=== PATIENT | male | born 1990 | race Caucasian/White ===

== ENCOUNTER 2021-04-13 00:25 | Emergency (ER) | payer SELFPAY ==
[2021-04-13 00:34] VITALS: BP 153/93; PULSE 80; RESP 18; TEMP 36.8; O2SAT 97; BMI 27.7
--- NOTE | 2021-04-13 00:41 | CTR_ITS ---
PROCEDURE INFORMATION: Exam: CT Cervical Spine Without Contrast Exam date and time: 04/13/2021 12:41 AM Age: 31 years old Clinical indication: Injury or trauma; Fall; Blunt trauma TECHNIQUE: Imaging protocol: Computed tomography images of the cervical spine without contrast. Radiation optimization: All CT scans at this facility use at least one of these dose optimization techniques: automated exposure control; mA and/or kV adjustment per patient size (includes targeted exams where dose is matched to clinical indication); or iterative reconstruction. COMPARISON: No relevant prior studies available. RADIATION DOSE METRICS: Total DLP (mGy-cm): 686.73 FINDINGS: Bones/joints: Spinal alignment is normal. Vertebral body height is maintained. There is a subtle nondisplaced fracture through the posterior margin of the left foramen transversarium visible on axial series 4, image 35 and coronal series 602, image 39. Discs/Spinal canal/Neural foramina: There is no spinal canal stenosis. Lungs: Lung apices are clear. Soft tissues: Soft tissues in the neck and thoracic inlet are unremarkable. CT/CT cervical spin wo con* [id number] IMPRESSION: Nondisplaced fracture through the left foramen transversarium at C2. This finding increases the likelihood of vertebral arterial injury. Recommend follow-up CTA of the neck. Radiation Dose CTDIVOL = (mGy): DLP = 686.73 (mGy-cm)
--- NOTE | 2021-04-13 00:41 | ECG_ITS ---
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 Measurements Intervals [place] Rate: 84 P: 59 OR: 152 QRS: 67 QRSD: 121 T: 40 QT: 357 QTc: 422 Interpretive Statements SINUS RHYTHM POSSIBLE RIGHT VENTRICULAR CONDUCTION DELAY [RSR (QR) IN V1/V2] No previous ECG available for comparison Electronically Signed On 04-13-2021 21:08:55 CDT by Nery Torres M.D. [email or web address]
--- NOTE | 2021-04-13 00:41 | CTR_ITS ---
PROCEDURE INFORMATION: Exam: CT Head Without Contrast Exam date and time: 04/13/2021 12:41 AM Age: 31 years old Clinical indication: Injury or trauma; Fall; Blunt trauma (contusions or hematomas); With loss of consciousness; Loss of consciousness 31-59 minutes; Injury details: Abrasions on forehead; Additional info: Head injury TECHNIQUE: Imaging protocol: Computed tomography of the head without contrast. Radiation optimization: All CT scans at this facility use at least one of these dose optimization techniques: automated exposure control; mA and/or kV adjustment per patient size (includes targeted exams where dose is matched to clinical indication); or iterative reconstruction. COMPARISON: No relevant prior studies available. RADIATION DOSE METRICS: Total DLP (mGy-cm): 890.73 FINDINGS: Brain: The brain is unremarkable. There is no mass effect or significant white matter disease. There is no acute intracranial hemorrhage. Cerebral ventricles: There is no significant ventricular dilation. The basal cisterns are unremarkable. Paranasal sinuses: There is mucosal thickening in the ethmoid sinuses. There is no fluid in the paranasal sinuses to suggest acute sinusitis. Mastoid air cells: The mastoid air cells are clear. Bones/joints: The calvarium is intact. Soft tissues: The visible extracranial soft tissues are unremarkable. CT/CT head wo con* [id number] IMPRESSION: No acute findings. Radiation Dose CTDIVOL = (mGy): DLP = 890.73 (mGy-cm)
--- NOTE | 2021-04-13 00:45 | ED_ITS ---
HPI - Syncope General: Chief Complaint: Syncope Stated Complaint: SYNCOPE/ANXIETY Time Seen by Provider: 04/13/21 00:34 Source: patient Mode of arrival: ambulatory Limitations: no limitations History of Present Illness: HPI narrative: 31-year-old male states that he was at alcoholics anonymous meeting [facility] and states he was walking started feeling very anxious. States been having anxiety attacks as has been trying to stop drinking. He states that he had woke up on the ground and did not remember what it happened. He did have a syncopal event and he hit his head on the ground. States he is got some head and neck pain. Denies any chest pain. States he still feeling anxious. Associated symptoms: Deny abdominal pain, chest pain, fever(s), headache(s) or nausea Review of Systems Const: Denies: fever(s), chills, body aches or change in appetite Eyes: Denies: blurry vision or eye discomfort ENMT: Denies: throat pain or dental pain Card: Reports: syncope; Denies: chest pain Resp: Denies: dyspnea GI: Denies: abdominal pain, nausea, vomiting or diarrhea : Denies: dysuria Musc: Denies: neck pain or back pain Skin/Breast: Denies: rash Neuro: Denies: headache(s) Psych: Reports: anxiety; Denies: depression Dao/Lymph: Denies: easy bruising All/Imm: Denies: urticaria Physical Exam Const: COMMON NORMALS: no acute distress, patient oriented x3 and healthy appearing HENMT: COMMON NORMALS: normocephalic HEAD & SCALP: normocephalic OTHER: abrasions to forehead Eye: COMMON NORMALS: Equal, round and reactive pupils present and EOMs intact bilaterally PUPIL: Yes Equal, round and reactive pupils present Neck/C-Spine: COMMON NORMALS: full ROM and supple Chest: COMMONS NORMALS: normal inspection of the chest and normal palpation of entire chest wall Resp: COMMON NORMALS: normal respiratory effort, No retractions, No use of accessory muscles and clear to auscultation bilaterally AUSCULTATION: clear to auscultation bilaterally Cardio: COMMON NORMALS: regular rate, regular rhythm and No murmurs present (Cardio) RATE: regular rate RHYTHM: regular rhythm GI: COMMON NORMALS: Normal to inspection, nondistended, normoactive bowel sounds present, Soft to palpation, non-tender and no masses PALPATION: Yes Soft to palpation Extremity: COMMON NORMALS: normal to inspection and full ROM Neuro: COMMON NORMALS: patient oriented x3, moves all extremities and no focal motor deficits Psych: COMMON NORMALS: mental status grossly normal, Normal thought process present and cooperative MOOD & AFFECT: Yes anxious THOUGHT PROCESS: Normal thought process present Skin: COMMON NORMALS: no rashes or lesions noted and no wounds GENERAL SKIN EXAM: no rashes or lesions noted Course Vital Signs: Vital signs: Vital Signs Temperature 98.3 F 04/13/21 00:34 Pulse Rate 80 04/13/21 00:34 Respiratory Rate 18 04/13/21 00:34 Blood Pressure 153/93 04/13/21 00:34 Pulse Oximetry 97 04/13/21 00:34 MDM - Syncope MDM Narrative: Medical decision making narrative: Patient presents here with spine fracture from a fall. I spoke to spine surgeon at [facility] he recommended [place] J or [place] collar which I did place him in a [place] collar and he is to follow-up with her. Patient also has area over the vertebral artery with no signs of occlusion. We will start patient on aspirin I also spoke to neurology at [facility] while patient follow-up as well. He is return if worsening. He has no weakness or numbness to his arm on exam. Lab Data: Labs: Lab Results 04/13/21 Range/Units 01:45 WBC 13.0 H (4.0-10.0) 10^3/ uL RBC 4.61 (4.1-5.3) 10^6/u L Hgb 13.7 (11.7-16.6) g/dL Hct 40.2 L (42.0-52.0) % MCV 87.2 (80-94) fL MCH 29.7 (28.0-34.0) pg MCHC 34.1 (30.0-36.0) g/dL RDW 12.1 (12.1-15.1) % Plt Count 303 (130-400) 10^3/c mm MPV 8.5 (7.4-10.4) fL Neut % (Auto) 74.6 % Lymph % (Auto) 15.2 % [place] % (Auto) 8.6 % Eos % (Auto) 0.9 % Baso % (Auto) 0.3 % Neut # (Auto) 9.67 H (1.8-7.7) 10^3/u L Lymph # (Auto) 2.0 (0.8-4.8) 10^3/u L [place] # (Auto) 1.1 H (0.2-0.9) 10^3/u L Eos # (Auto) 0.1 (0.0-0.8) 10^3/u L Baso # (Auto) 0.0 (0.0-0.1) 10^3/u L Nucleated RBC % (a uto) 0 % Nucleated RBCs # 0.0 /100WBC Imaging Data^: CT Head: Radiologist's impression: [facility] [address] [address] Scan Report Signed Patient: Philipp Sifuentes Unit #: [id number] : 1990 Age/Sex: 31 / M ADM Date: 04/13/21 Loc: ER Room/Bed: Attending Dr: Ordering Provider/Ordering MD: Jerome Brown MD Date of Service: 04/13/21 Procedure(s): CT head wo con* [id number] Accession Number(s): [id number] Report Number: [id number] PROCEDURE INFORMATION: Exam: CT Head Without Contrast Exam date and time: 04/13/2021 12:41 AM Age: 31 years old Clinical indication: Injury or trauma; Fall; Blunt trauma (contusions or hematomas); With loss of consciousness; Loss of consciousness 31-59 minutes; Injury details: Abrasions on forehead; Additional info: Head injury TECHNIQUE: Imaging protocol: Computed tomography of the head without contrast. Radiation optimization: All CT scans at this facility use at least one of these dose optimization techniques: automated exposure control; mA and/or kV adjustment per patient size (includes targeted exams where dose is matched to clinical indication); or iterative reconstruction. COMPARISON: No relevant prior studies available. RADIATION DOSE METRICS: Total DLP (mGy-cm): 890.73 FINDINGS: Brain: The brain is unremarkable. There is no mass effect or significant white matter disease. There is no acute intracranial hemorrhage. Cerebral ventricles: There is no significant ventricular dilation. The basal cisterns are unremarkable. Paranasal sinuses: There is mucosal thickening in the ethmoid sinuses. There is no fluid in the paranasal sinuses to suggest acute sinusitis. Mastoid air cells: The mastoid air cells are clear. Bones/joints: The calvarium is intact. Soft tissues: The visible extracranial soft tissues are unremarkable. CT/CT head wo con* [id number] IMPRESSION: No acute findings. Radiation Dose CTDIVOL = (mGy): DLP = [address]: Radiologist's impression: [address] [place] [address] CT Scan Report Signed with Addenda Patient: Philipp Sifuentes Unit #: [id number] : 1990 Age/Sex: 31 / M ADM Date: 04/13/21 Loc: ER Room/Bed: Attending Dr: Ordering Provider/Ordering MD: Jerome Brown MD Date of Service: 04/13/21 Procedure(s): CT cervical spin wo con* [id number] Accession Number(s): [id number] Report Number: [id number]/CT cervical spin wo con* [id number] THIS REPORT CONTAINS FINDINGS THAT MAY BE CRITICAL TO PATIENT CARE. The findings were verbally communicated via telephone conference with JEROME BROWN at 2:21 AM CDT on 04/13/2021. The findings were acknowledged and understood. Radiation Dose CTDIVOL = (mGy): DLP = 686.73 (mGy-cm) Addendum Dictated By: Vinnie Reynoso MD Addendum Signed By: Vinnie Reynoso MD Signed Date/Time: 0223 Addendum Cosigned By: PROCEDURE INFORMATION: Exam: CT Cervical Spine Without Contrast Exam date and time: 04/13/2021 12:41 AM Age: 31 years old Clinical indication: Injury or trauma; Fall; Blunt trauma TECHNIQUE: Imaging protocol: Computed tomography images of the cervical spine without contrast. Radiation optimization: All CT scans at this facility use at least one of these dose optimization techniques: automated exposure control; mA and/or kV adjustment per patient size (includes targeted exams where dose is matched to clinical indication); or iterative reconstruction. COMPARISON: No relevant prior studies available. RADIATION DOSE METRICS: Total DLP (mGy-cm): 686.73 FINDINGS: Bones/joints: Spinal alignment is normal. Vertebral body height is maintained. There is a subtle nondisplaced fracture through the posterior margin of the left foramen transversarium visible on axial series 4, image 35 and coronal series 602, image 39. Discs/Spinal canal/Neural foramina: There is no spinal canal stenosis. Lungs: Lung apices are clear. Soft tissues: Soft tissues in the neck and thoracic inlet are unremarkable. CT/CT cervical spin wo con* [id number] IMPRESSION: Nondisplaced fracture through the left foramen transversarium at C2. This finding increases the likelihood of vertebral arterial injury. Recommend follow-up CTA of the neck. Radiation Dose CTDIVOL = (mGy): DLP = EKG Data^: EKG 1: Attestation: I personally reviewed and interpreted this EKG as follows: EKG interpretation date: 04/13/21 EKG interpretation time: 00:48 Interpretation: Normal sinus rhythm heart rate [address] or T wave normalities QRS 121 QTC 397 Discharge Plan Discharge Patient Disposition: Home Clinical Impression: Cervical spine fracture Qualifiers: Encounter type: initial encounter Cervical vertebra fracture level: C2 Fracture type: closed Fracture morphology: unspecified fracture morphology Fracture alignment: nondisplaced Qualified Code(s): S12.101A - Unspecified nondisplaced fracture of second cervical vertebra, initial encounter for closed fracture Condition: Stable Prescriptions: New hydrocodone-acetaminophen 5-325 mg tablet 1 tab PO Q6H PRN (Reason: pain) Qty: 14 RF: 0 aspirin 81 mg tablet,delayed release (DR/EC) 81 mg PO DAILY Qty: 60 RF: 0 Discharge Orders: Discharge ED (Routine); Ordered 04/13/21 Ordered By: Jerome Brown [facility]errals: [facility] [Other] - 1-3 days [facility] [Other] - 4-7 days Discharge Diet: Advance as tolerated Discharge Activity: Resume usual activity Patient Instructions: Cervical Fracture (ED), Opioid Safety Coding Level of Care Code ED Office Machine Service Supervisor for Chg Fwd Exam Comprehensive
[2021-04-13] MEDS: LORazepam 2 mg/mL INJ 1 mL IM (02:04)
[2021-04-13 02:08] LABS: Basophils % 0.3 %; Eosinophils # 0.1 10^3/uL (0.0-0.8); Eosinophils % 0.9 %; Hematocrit 40.2 % (42.0-52.0); Hemoglobin 13.7 g/dL (11.7-16.6); Lymphocytes % 15.2 %; Mean Corpuscular HGB Conc 34.1 g/dL (30.0-36.0); Mean Corpuscular Hemoglobin 29.7 pg (28.0-34.0); Mean Corpuscular Volume 87.2 fL (80-94); Mean Platelet Volume 8.5 fL (7.4-10.4); Monocytes # 1.1 10^3/uL (0.2-0.9); Monocytes % 8.6 %; Neutrophils # 9.67 10^3/uL (1.8-7.7); Neutrophils % 74.6 %; Nucleated Red Blood Cells % 0 %; Platelet Count 303 10^3/cmm (130-400); Red Blood Count 4.61 10^6/uL (4.1-5.3); Red Cell Distribution Width 12.1 % (12.1-15.1)
--- NOTE | 2021-04-13 02:21 | CTR_ITS ---
PROCEDURE INFORMATION: Exam: CT Angiography Neck With Contrast Exam date and time: 04/13/2021 2:21 AM Age: 31 years old Clinical indication: Injury or trauma; Fall; Blunt trauma; Neck; Additional info: Cervical FX TECHNIQUE: Imaging protocol: Computed tomography angiography of the neck with contrast. 3D rendering (Not supervised by radiologist): MIP and/or 3D reconstructed images were created by the technologist. Radiation optimization: All CT scans at this facility use at least one of these dose optimization techniques: automated exposure control; mA and/or kV adjustment per patient size (includes targeted exams where dose is matched to clinical indication); or iterative reconstruction. Contrast material: OMNI 350; Contrast volume: 95 ml; Contrast route: INTRAVENOUS (IV); COMPARISON: CT cervical spin wo con* [id number] 04/13/2021 1:26 AM RADIATION DOSE METRICS: Total DLP (mGy-cm): 2265.69 FINDINGS: Right common carotid artery: No stenosis. No dissection or occlusion. Right internal carotid artery: No stenosis of the extracranial segment. No dissection or occlusion. Right external carotid artery: No occlusion or stenosis of the origin. Left common carotid artery: No stenosis. No dissection or occlusion. Left internal carotid artery: No stenosis of the extracranial segment. No dissection or occlusion. Left external carotid artery: No occlusion or stenosis of the origin. Right vertebral artery: No stenosis. No dissection or occlusion. Left vertebral artery: Minimal thickening of the wall of left vertebral artery at the level of left C2 transverse foramen results in narrowing of much less than 25%. Soft tissues: Normal. No significant soft tissue swelling. Bones/joints: Please see cervical spine report. CT/CT angio neck [id number] IMPRESSION: Minimal vertebral artery injury at the level of left C2 transverse foramen. No significant cervical arterial narrowing. REFERENCES: NASCET CRITERIA. The degree of internal carotid artery stenosis is based on NASCET criteria. Normal is no stenosis. Mild is less than 50% stenosis. Moderate is 50-69% stenosis. Severe is 70% to 99% stenosis. Total occlusion is no detectable patent lumen. Radiation Dose CTDIVOL = (mGy): DLP = 2265.69 (mGy-cm)
[2021-04-13] MEDS: iohexol 350 mg/mL 100 mL Btl IV (03:13)
== END 2021-04-13 08:23 | disposition home or self-care (01) ==
PROVIDERS: Emergency Provider Emergency Medicine
DX: S12.101A Unspecified nondisplaced fracture of second cervical vertebra, initial encounter for closed fracture (principal); W19.XXXA Unspecified fall, initial encounter
CPT/HCPCS: 36415; 70450; 70498; 72125; 85025; 93005; 96372; 99283; J2060; Q9967